=== PATIENT | female | born 1960 | race Caucasian/White ===

== ENCOUNTER → 2024-05-31 | Outpatient (CLI) | payer BC ==
[2024-05-31 11:42] VITALS: BP 145/91; PULSE 70; RESP 16; TEMP 97.3
--- NOTE | 2024-05-31 14:22 | P.PAINPG ---
PQRS Measure Charge Sheet Comment: HISTORY OF PRESENT ILLNESS: A 64 yr old female as a referral from Anjali MATTHEWS presents today w severe and chronic LBP> 3 mo secondary to radiculopathy, spondylosis and facet arthropathy without myelopathy for evaluation. Pt states pain level is provoked at 7 /10 in intensity, constant, localized in the lumbar spine, predominantly axial, tender in character w occasional shooting pain towards the back of the LEs and feet. Pain is provoked by standing/ walking for periods > 20 min and over activity. Pain is alleviated by PT x 4 wks which she is currently in , heat, ice, medications, topical, repositioning and rest . Oswestry axial pain score at 23. PMH: OA, Thyroid nodule PSH: Colonoscopy (2015), BL Mammoplasty (2013) SH: Negative x3 FH: Non contributory All: See list Meds: See list incl Soma, Lidoderm REVIEW OF ORGAN SYSTEMS: CONSTITUTIONAL: No fevers or chills. No recent weight loss. NEUROLOGICAL: + numbness and tingling along the distal extremities. No seizure disorders or headaches. MUSCULOSKELETAL: + pain PSYCHIATRIC: Denies current depression or suicidal thoughts. Physical Examinations : Constitutional : Cooperative , not in acute distress . Neurologic : Cranial nerve II to XII intact. No focal neurological deficits. Psychiatric : alert & oriented x 3. Matching mood & appropriate affect. Judgment & insight intact. Musculoskeletal : Cervical Spine Motor strength in the deltoid and biceps: Normal right side. Normal Left side Motor strength biceps and the wrist extensors: Normal right side . Normal left side Motor strength in the triceps muscle: Normal right side. Normal left side Deep tendon reflexes: Normal at the biceps. Normal at Brachioradialis. Normal at triceps Vertebral body tenderness to deep palpation over Cervical facet loading test: positive bilaterally Spurling test: positive bilaterally Neck distraction test: positive bilaterally Mehrdad sign: positive bilaterally Lumbar spine Motor strength lower extremities ,thigh and legs 5/5 Right side , 5/5 Left side Deep tendon reflexes : Normal Knee Jerk. Normal Ankle Jerk Vertebral body tenderness over L5 Marroquin Test positive BL L5-S1 Lumbar facet Loading Test: positive Right / positive Left Range of motion of the lumbar spine Flexion 30 degrees, extension 10 degrees Straight Leg Raise test: Left/ Right positive at degrees Beatrice test: positive right / positive left. Severe tenderness over the Sacroiliac joint on the Right / Left sides Tracy test: positive bilaterally Seated flexion test: positive bilaterally. Sacral spine : Severe tenderness over the Sacroiliac joint: right side / left side Range of motion: Flexion of the lumbar spine <60 degrees Range of motion: Extension of the lumbar spine <20 degrees Gaenslen's Test positive Beatrice test: positive right side / left side Thigh Thrust Test Sacral Thrust Test Imaging: MRI non contrast lumbar spine from 03/16/24 reviewed Assessment/ Plan : L5-S1 posterior disc bulge Recommendation of BL TFESI L5-S1 #1. Risks, benefits of procedure discussed and patient verbalized understanding. Admits to anti- coagulant use or medical hist ory of diabetes. Protocol for discontinuation/ continuation of medications jaret procedure discussed. Per pt request, prescribed 1 tablet of Diazepam with directions discussed. Not to take w Carisoprolol. All questions answered. I have spent greater than 30 minutes on patient care today. Dr Saenz was available by phone for the evaluation of this patient. The time was used to review the medical records including relevant urine studies and Prescription history (MAPs), review of the available imaging, evaluation and examination of the patient, coordination of care with the medical staff and if applicable referring physicians, as well as creation of the medical record PQRS Narrative: Smoking Status Never smoker Home Medications: Ambulatory Orders Naproxen Sodium [Aleve] 2 tab PO BID 03/25/15 carisoprodoL [Soma] 1 - 2 tab PO HS PRN 03/25/15 diazePAM [Valium] 5 mg PO DAILY 1 Days #1 tab 05/31/24 Controlled Substance Measures - Controlled Substance Measures Is patient prescribed a controlled substance at discharge?: Yes When asked, does pt state using other controlled substances?: Yes If prescribed controlled substance>3 days was MAPS reviewed?: Prescribed <3 Days
== END ==
LOC: PNWHC3 08:56
PROVIDERS: ATTEND Specialist
DX: M51.372 Other intervertebral disc degeneration, lumbosacral region with discogenic back pain and lower extremity pain (principal)
CPT/HCPCS: 99211

== ENCOUNTER 2024-06-15 11:14 | Day surgery (SDC) | payer BC ==
[2024-06-14 10:20] VITALS: BMI 27.3
[~2024-06-15 11:14] MED LIST: LACTATED RINGERS 1,000 ML IV SCH
[2024-06-15 11:44] VITALS: RESP 16; TEMP 97.6
[2024-06-15] MEDS ORDERED: methylPREDNISolone ACETATE 80 MG/ML 1 ML VIAL ONE (12:02)
[2024-06-15] MEDS ORDERED: IOPAMIDOL M200 10 ML VIAL ONE (12:02)
--- NOTE | 2024-06-15 12:14 | P.PCN ---
Date of Procedure: 06/15/24 Procedure(s) Performed: PREOPERATIVE DIAGNOSIS: 1-Lumbar radiculopathy . 2-lumbar degenerative disc disease. POSTOPERATIVE DIAGNOSIS: 1-lumbar radiculopathy. 2-lumbar degenerative disc disease. PROCEDURE 1. Transforaminal epidural steroid injection under fluoroscopic guidance at bilateral L5-S1 level. (Fluoroscopy images stored on file in the radiology Department ) 2. Lumbar epidurogram . ANESTHESIA: Local with 1% lidocaine 3 ml. EBL: Minimal PROCEDURE INDICATION: The patient with low back pain and radiculopathy symptoms unresponsive to conservative treatment. PROCEDURE DESCRIPTION / TECHNIQUE: The patient was seen and identified in the preoperative area. Risks, benefits, complications, and alternatives were discussed with the patient. The patient agreed to proceed with the procedure and signed the consent. IV was started, and vital signs were stable. Patient was taken to the OR and time out was completed. The patient was placed in the prone position on procedure table and a pillow was placed under the abdomen to reduce lumbar lordosis. The lumbosacral area was prepped and draped in the usual sterile fashion. Critical pause was taken. Vital signs were closely monitored during the procedure. Using oblique fluoroscopy, the chin of the ``Reid dog at right L5-S1 level was identified, and the skin and deeper tissues just below was localized with 1% lidocaine. Subsequently, a 23-gauge 3.5-inch spinal needle was advanced under a tunneled view fluoroscopic guidance just underneath the chin of the `Darrelly dog at the right L5-S1 Under lateral fluoroscopy, the needle was then advanced to the posterior border of the interforaminal space. After negative aspiration of CSF and blood and with no paresthesias, 1 mL Isovue 200 contrast dye was injected excellent epidurogram and outlining of the nerve root Subsequently, 3 mL of block solution containing 40 mg Depo-Medrol and 2 mL of 0.9% normal saline PF was injected. Needle was removed and the same procedure was repeated at the left L5-S1 level (s). At the end of the procedure, skin was cleansed, and bandages were applied. COMPLICATIONS:none DISPOSITION / PLANS: The patient was placed in a supine position and transferred to the recovery area in a stable condition for observation. There was no evidence of lower extremity motor or sensory deficit after the procedure. Patient was discharged from the recovery room after meeting discharge criteria. Home discharge instructions were given to the patient by the staff. The patient was reexamined prior to discharge.
[2024-06-15 12:31] VITALS: BP 131/78; PULSE 61
--- NOTE | 2024-06-15 12:32 | FL ---
Fluoroscopy INDICATION: Pain FINDINGS: Fluoroscopy time: 26.8 seconds. Total dose area product (DAP) in uGy*m?, mGy*cm? (or similar): 0.69202 Images obtained: 3. Images document Jackpot directed towards the lumbar spine IMPRESSION: 1. Documentation of fluoroscopy. [facility], , 06/15/2024 12:29 PM
== END 2024-06-15 12:47 | disposition home or self-care (01) ==
LOC: ORPAIN 11:14
PROVIDERS: ATTEND Specialist
DX: M51.16 Intervertebral disc disorders with radiculopathy, lumbar region (principal)
CPT/HCPCS: 64483; Q9966; J1010

== ENCOUNTER → 2024-07-12 | Outpatient (CLI) | payer BC ==
[2024-07-12 09:24] VITALS: BP 135/85; PULSE 62; RESP 17
--- NOTE | 2024-07-12 14:51 | P.PAINPG ---
Objective - Vital Signs Vital signs: Intake & Output 07/11/24 07/12/24 07/12/24 18:59 06:59 18:59 Weight 83.915 kg PQRS Measure Charge Sheet Comment: HISTORY OF PRESENT ILLNESS: A 64 yr old female presents today w severe and chronic LBP> 3 mo secondary to radiculopathy, spondylosis and facet arthropathy without myelopathy for evaluation s/p BL TFESI L5-S1 #1. Pt states she experienced 50 % pain relief x 2 wks s/p procedure. Pt states pain level is provoked at 7 /10 in intensity, constant, localized in the R lumbar spine, predominantly axial, tender in character without shooting pain. Pain is provoked by standing/ walking for periods > 20 min and over activity. Pain is alleviated by PT x 4 wks which she is currently in , heat, ice, medications, topical, use of a LSO, repositioning and rest . Interventional procedures include BL TFESI L5-S1 x1 Medications include Soma, Lidoderm REVIEW OF ORGAN SYSTEMS: CONSTITUTIONAL: No fevers or chills. No recent weight loss. NEUROLOGICAL: + numbness and tingling along the distal extremities. No seizure disorders or headaches. MUSCULOSKELETAL: + pain PSYCHIATRIC: Denies current depression or suicidal thoughts. Physical Examinations : Constitutional : Cooperative , not in acute distress . Neurologic : Cranial nerve II to XII intact. No focal neurological deficits. Psychiatric : alert & oriented x 3. Matching mood & appropriate affect. Judgment & insight intact. Musculoskeletal : Cervical Spine Motor strength in the deltoid and biceps: Normal right side. Normal Left side Motor strength biceps and the wrist extensors: Normal right side . Normal left side Motor strength in the triceps muscle: Normal right side. Normal left side Deep tendon reflexes: Normal at the biceps. Normal at Brachioradialis. Normal at triceps Vertebral body tenderness to deep palpation over Cervical facet loading test: positive bilaterally Spurling test: positive bilaterally Neck distraction test: positive bilaterally Mehrdad sign: positive bilaterally Lumbar spine Motor strength lower extremities ,thigh and legs 5/5 Right side , 5/5 Left side Deep tendon reflexes : Normal Knee Jerk. Normal Ankle Jerk Vertebral body tenderness over L5 Marroquin Test positive BL L5-S1 Lumbar facet Loading Test: positive Right / positive Left Range of motion of the lumbar spine Flexion 30 degrees, extension 10 degrees Straight Leg Raise test: Left/ Right positive at degrees Beatrice test: positive right / positive left. Severe tenderness over the Sacroiliac joint on the Right / Left sides Gaenslen test: positive bilaterally Seated flexion test: positive bilaterally. Sacral spine : Severe tenderness over the Sacroiliac joint: right side / left side Range of motion: Flexion of the lumbar spine <60 degrees Range of motion: Extension of the lumbar spine <20 degrees Gaenslen's Test positive Beatrice test: positive right side / left side Thigh Thrust Test Sacral Thrust Test Imaging: MRI non contrast lumbar spine from 03/16/24 reviewed Assessment/ Plan : L5-S1 posterior disc bulge Recommendation of BL TFESI L5-S1 #2. Risks, benefits of procedure discussed and patient verbalized understanding. Admits to anti- coagulant use or medical history of diabetes. Protocol for discontinuation/ continuation of medications jaret procedure discussed. Per pt request, prescribed 1 tablet of Diazepam with directions discussed. Not to take w Carisoprolol. All questions answered. I have spent greater than 30 minutes on patient care today. Dr Saenz was available by phone for the evaluation of this patient. The time was used to review the medical records including relevant urine studies and Prescription history (MAPs), review of the available imaging, evaluation and examination of the patient, coordination of care with the medical staff and if applicable referring physicians, as well as creation of the medical record - Pain Location Lower Back Non-Pharmacological Interventions: Heat Pharmacological Interventions: Topical Medication PQRS Narrative: Smoking Status Never smoker Hx Alcohol Use (MH) No Home Medications: Ambulatory Orders carisoprodoL [Soma] 350 mg PO HS 03/25/15 Progesterone, Micronized [Progesterone] 100 mg PO HS 06/14/24 estradioL [estradioL (Once Weekly) 0.05 mg Patch] 1 patch TRANSDERM SA 06/14/24 estradioL [estradioL (Once Weekly) 0.05 mg Patch] 1 patch TRANSDERM TU 06/14/24 diazePAM [Valium] 5 mg PO DIRECTED 1 Days #2 tab 07/12/24 Controlled Substance Measures - Controlled Substance Measures Is patient prescribed a controlled substance at discharge?: Yes When asked, does pt state using other controlled substances?: Yes If prescribed controlled substance>3 days was MAPS reviewed?: Prescribed <3 Days
== END ==
LOC: PNWHC3 08:55
PROVIDERS: ATTEND Specialist
DX: M47.26 Other spondylosis with radiculopathy, lumbar region (principal); M51.17 Intervertebral disc disorders with radiculopathy, lumbosacral region
CPT/HCPCS: 99212

== ENCOUNTER 2024-08-21 09:51 | Day surgery (SDC) | payer BC ==
[2024-08-20 11:18] VITALS: BMI 26.6
[2024-08-21 10:07] VITALS: TEMP 97.3
[2024-08-21] MEDS ORDERED: DEXAMETHASONE SOD PHOSPHATE 10 MG/ML 1 ML VIAL ONE (10:41)
[2024-08-21] MEDS ORDERED: IOPAMIDOL M300 15ML VIAL ONE (10:41)
--- NOTE | 2024-08-21 11:14 | P.PCN ---
Description of Procedure: PREOPERATIVE DIAGNOSIS: 1-Lumbar radiculopathy . 2-lumbar degenerative disc disease. 3-lumbar spondylosis with lumbar facet arthropathy without myelopathy POSTOPERATIVE DIAGNOSIS: 1-lumbar radiculopathy. 2-lumbar degenerative disc disease. 3-lumbar spondylosis with facet arthropathy without myelopathy PROCEDURE 1. Transforaminal epidural steroid injection under fluoroscopic guidance at BILATERAL L5-S1 level. (Fluoroscopy images stored on file in the radiology Department ) 2. Lumbar epidurogram . ANESTHESIA: Local with 1% lidocaine 5 ml. subcutaneously. Continuous pulse ox, EKG, blood pressure and verbal communication was maintained with the patient. EBL: Minimal PROCEDURE INDICATION: The patient with low back pain and radiculopathy symptoms unresponsive to conservative treatment. The patient was seen and identified in the preoperative area. Risks, benefits, complications, and alternatives were discussed with the patient. The patient agreed to proceed with the procedure and signed the consent. IV was started, and vital signs were stable. PROCEDURE DESCRIPTION / TECHNIQUE: After getting consent, patient was taken to the OR and time out was completed. The patient was placed in the prone position on procedure table and a pillow was placed under the abdomen to reduce lumbar lordosis. The lumbosacral area was prepped and draped in the usual sterile fashion. Critical pause was taken. After injecting 5 mL of plain 1% lidocaine subcutaneously, under oblique view of the fluoroscope, a 22-gauge spinal needle was introduced under the tunnel view of the fluoroscope on the RIGHT side and the needle was advanced so that the tip of the needle was at the posterior inferior quadrant of the intervertebral for amen at the lateral view of the fluoroscope and in the lateral third of the facet column in the AP view of the fluoroscope. Negative CSF, negative blood, negative paresthesia. After needle position confirmation by AP and cross table lateral view, 3 mL of Isovue-M 200 contrast was injected under continuous fluoroscope. No contrast was noted in the intrathecal or intravascular space. The epidurogram was noted. Again after repeated negative aspiration 2.5 mL solution was injected which consists 1 mL of normal saline mixed with 1.5 mL of 15 mg dexamethasone. Needle was removed . Same procedure was repeated at the LEFT side at same level , using contrast under continuous fluoroscopy and using same amount of dexamethasone. At the end of the procedure, skin was cleansed, and bandages were applied. DISPOSITION / PLANS: No complication. The patient tolerated the procedure well. The patient was placed in a supine position and transferred to the recovery area in a stable condition for observation. There was no evidence of lower extremity motor or sensory deficit after the procedure. Patient was discharged from the recovery room after meeting discharge criteria. Home discharge instru ctions were given to the patient by the staff. The patient was reexamined prior to discharge.
[2024-08-21] MEDS: IV FLUID CONTINUATION 800 ML IV ONE (11:27)
[2024-08-21 11:30] VITALS: RESP 16
--- NOTE | 2024-08-21 11:38 | FL ---
Fluoroscopy INDICATION: Pain FINDINGS: Fluoroscopy time: 85.3 seconds. Total dose area product (DAP) in uGy*m?, mGy*cm? (or similar): 0.57913 Images obtained: 5. Images document [place] directed towards the lumbar spine IMPRESSION: 1. Documentation of fluoroscopy. [facility], , 08/21/2024 11:36 AM
[2024-08-21 11:44] VITALS: BP 131/71; PULSE 75
== END 2024-08-21 12:00 | disposition home or self-care (01) ==
LOC: ORPAIN 09:51
PROVIDERS: ATTEND Pain Medicine Interventional Pain Medicine
DX: M47.26 Other spondylosis with radiculopathy, lumbar region (principal); M51.16 Intervertebral disc disorders with radiculopathy, lumbar region
CPT/HCPCS: 64483; J1100; Q9967

== ENCOUNTER → 2024-09-05 | Outpatient (CLI) | payer BC ==
[2024-09-05 09:14] VITALS: BP 130/88; PULSE 64; RESP 16; TEMP 97.2
--- NOTE | 2024-09-05 16:10 | P.PAINPG ---
PQRS Measure Charge Sheet Comment: HISTORY OF PRESENT ILLNESS: A 64 yr old female presents today w severe and chronic LBP> 3 mo secondary to radiculopathy, spondylosis and facet arthropathy without myelopathy for evaluation s/p BL TFESI L5-S1 #2. Pt states she experienced 50 % pain relief x 2 wks s/p procedure. Pt states pain level is provoked at 5-6 /10 in intensity, intermittent, localized in the lumbar spine, predominantly axial, tight/ tender in character without shooting pain. Pain is provoked by standing/ walking for periods > 20 min and over activity. Pain is alleviated by PT x 5 mo which she is currently in , heat, ice, medications, topical, use of a LSO, repositioning and rest . Interventional procedures include BL TFESI L5-S1 x2 (08/29) Medications include Soma, Lidoderm REVIEW OF ORGAN SYSTEMS: CONSTITUTIONAL: No fevers or chills. No recent weight loss. NEUROLOGICAL: + numbness and tingling along the distal extremities. No seizure disorders or headaches. MUSCULOSKELETAL: + pain PSYCHIATRIC: Denies current depression or suicidal thoughts. Physical Examinations : Constitutional : Cooperative , not in acute distress . Neurologic : Cranial nerve II to XII intact. No focal neurological deficits. Psychiatric : alert & oriented x 3. Matching mood & appropriate affect. Judgment & insight intact. Musculoskeletal : Cervical Spine Motor strength in the deltoid and biceps: Normal right side. Normal Left side Motor strength biceps and the wrist extensors: Normal right side . Normal left side Motor strength in the triceps muscle: Normal right side. Normal left side Deep tendon reflexes: Normal at the biceps. Normal at Brachioradialis. Normal at triceps Vertebral body tenderness to deep palpation over Cervical facet loading test: positive bilaterally Spurling test: positive bilaterally Neck distraction test: positive bilaterally Mehrdad sign: positive bilaterally Lumbar spine Motor strength lower extremities ,thigh and legs 5/5 Right side , 5/5 Left side Deep tendon reflexes : Normal Knee Jerk. Normal Ankle Jerk Vertebral body tenderness over L5 Marroquin Test positive BL L5-S1 Taut bands w twitch response over BL L2-S1 Lumbar facet Loading Test: positive Right / positive Left Range of motion of the lumbar spine Flexion 30 degrees, extension 10 degrees Straight Leg Raise test: Left/ Right positive at degrees Beatrice test: positive right / positive left. Severe tenderness over the Sacroiliac joint on the Right / Left sides Gaenslen test: positive bilaterally Seated flexion test: positive bilaterally. Sacral spine : Severe tenderness over the Sacroiliac joint: right side / left side Range of motion: Flexion of the lumbar spine <60 degrees Range of motion: Extension of the lumbar spine <20 degrees Gaenslen's Test positive Beatrice test: positive right side / left side Thigh Thrust Test Sacral Thrust Test Imaging: MRI non contrast lumbar spine from 03/16/24 reviewed Assessment/ Plan : L5-S1 posterior disc bulge Recommendation of BL TPIs L2-S1 #1 though pt is disinterested at this time. All questions answered. I have spent greater than 30 minutes on patient care today. Dr Saenz was available by phone for the evaluation of this patient. The time was used to review the medical records including relevant urine studies and Prescription history (MAPs), review of the available imaging, evaluation and examination of the patient, coordination of care with the medical staff and if applicable referring physicians, as well as creation of the medical record - Pain Location Bilateral Lower Back Non-Pharmacological Interventions: Exercise, Heat, Home Exercise, Inactivity, Massage, Physical Therapy, Position/Reposition, Relaxation Technique, Sitting, Standing, Stretching Pharmacological Interventions: Epidural, PRN Medication, Topical Medication PQRS Narrative: Smoking Status Never smoker Hx Alcohol Use (MH) No Home Medications: Ambulatory Orders carisoprodoL [Soma] 350 mg PO HS 03/25/15 Progesterone, Micronized [Progesterone] 100 mg PO HS 06/14/24 estradioL [estradioL (Once Weekly) 0.05 mg Patch] 1 patch TRANSDERM SA 06/14/24 estradioL [estradioL (Once Weekly) 0.05 mg Patch] 1 patch TRANSDERM TU 06/14/24 diazePAM [Valium] 10 mg PO DIRECTED 08/21/24 Controlled Substance Measures - Controlled Substance Measures Is patient prescribed a controlled substance at discharge?: No
== END ==
LOC: PNWHC3 08:49
PROVIDERS: ATTEND Specialist
DX: M51.372 Other intervertebral disc degeneration, lumbosacral region with discogenic back pain and lower extremity pain (principal)
CPT/HCPCS: 99211